=== PATIENT | male | born 1975 ===

== ENCOUNTER 2017-12-19 10:00 | Outpatient (CLI) | payer BC ==
--- NOTE | 2017-12-19 12:10 | Diagnostic Imaging Report ---
Indications: Left testicular pain Technique: Grayscale and duplex images of the scrotum Comparison: none Findings:The right testicle measures for 0.3cm in length. It demonstrates normal echogenicity. Normal Doppler flow. There is a small hydrocele. There is also a small varicocele. A 2 mm cyst in the epididymal head represents either a spermatocele or an epididymal cyst The left testicle measures 4.3 cm in length. It demonstrates normal echogenicity and normal Doppler flow. 2 mm cyst is seen in the epididymal head. There is a moderate sized varicocele. There is a trace hydrocele Impression: No acute scrotal abnormality Bilateral trace hydroceles Bilateral left greater than right varicoceles Tiny epididymal cysts versus spermatoceles in the bilateral epididymal heads
== END 2017-12-19 12:00 | disposition home or self-care (01) ==
LOC: ULS 10:00
DX: N50.812 Left testicular pain (principal); N43.3 Hydrocele, unspecified; N50.3 Cyst of epididymis
CPT/HCPCS: 76870